=== PATIENT | male | born 1950 | race Caucasian/White ===

== ENCOUNTER 2018-10-24 04:39 | Inpatient (IN) | payer OTHER ==
[~2018-10-24] VITALS: Ht 172.7 cm; Wt 95.3 kg
--- NOTE | 2018-10-24 04:49 | NUR ---
REPORT RECIEVED FROM [facility] 0.8 TOTAL NITRO GIVEN AND PAIN 4/10 PER MASOOD CORMIER.
[2018-10-24 05:12] VITALS: Ht 172.7 cm; Wt 95.3 kg
--- NOTE | 2018-10-24 05:50 | NUR ---
PT STATED HAVING CHEST PRESSURE THIS MORNING @ 0430 WHILE WE WAS WATCHING TV. HE STATED THE CHEST PRESSURE WAS CONSTANT AND DIDN'T GO AWAY. STATED THE CHEST PRESSURE FELT LIKE SOMEONEWAS SITTING ON HIS CHEST ABOUT THE SIZE OF A SMALL CHILD. HR 58. BP 122/64(83). ALSO STATED HAVING 5/10 PAIN IN THE LOWER QUADRANT AND IT RADIATES TO HIS BACK. ABD SOFT AND OBESE. SLIGHTLY TENDER TO PALPATION UPON RLQ.
[2018-10-24 06:12] LABS: BASOPHIL % 0.3 % (0-2); PLATELET COUNT 223 x10^3mcL (130-400); RED CELL DISTRIBUTION WIDTH 13.6 % (11.5-14.5)
--- NOTE | 2018-10-24 06:32 | NUR ---
PT STATED FEELING A LITTLE BETTER. LESS PRESSURE ON HIS CHEST NOTED. UPDATED ON LAB REPORTS PT STATED HE WOULD LIKE TO KNOW HIS POTASSIUM LEVEL WHEN IT COMES BACK BECAUSE HE SAYS ITS USUALLY LOW AND HIS BODY HAS A HARD TIME RETAINING POTASSIUM.
[2018-10-24 06:39] LABS: CALCIUM 8.7 mg/dL (8.5-10.1); CARBON DIOXIDE 27.1 mmol/L (21-32); CHLORIDE SERUM 105 mmol/L (98-107); CREATININE SERUM 0.8 mg/dL (0.7-1.3); GFR1 > 60 mL/min; GLUCOSE SERUM 273 mg/dL (74-106); POTASSIUM SERUM 3.4 mmol/L (3.5-5.1); SODIUM SERUM 142 mmol/L (136-145)
[2018-10-24 06:42] LABS: ALKALINE PHOSPHATASE 155 U/L (46-116); ALT/SGPT 25 U/L (16-63); AST/SGOT 38 U/L (15-37); BILIRUBIN TOTAL 0.8 mg/dL (0.20-1.00); TOTAL PROTEIN, SERUM 6.7 g/dL (6.4-8.2)
[2018-10-24 06:48] LABS: ALBUMIN 3.3 g/dL (3.4-5.0)
--- NOTE | 2018-10-24 07:14 | NUR ---
PT RESTING ON ED GURNEY, RESPS E/U, NAD NOTED, ON FULL CM.
--- NOTE | 2018-10-24 07:14 | NUR ---
REPORT RECIEVED FROM KIYA CALDWELL.
--- NOTE | 2018-10-24 07:19 | NUR ---
CALL LIGHT WITHIN REACH, IN POSITION OF COMFORT. PT DENIES PAIN AT THIS TIME.
[2018-10-24] MEDS ORDERED: FLO4 PO (07:37)
[2018-10-24] MEDS ORDERED: LIPITOR80 MG PO (07:37)
[2018-10-24] MEDS ORDERED: NITROSTAT0.4 MG SL (07:38)
[2018-10-24] MEDS ORDERED: NOR5 PO (07:39)
[2018-10-24] MEDS ORDERED: RITE AID GLUCOSE4 GM PO (07:41)
[2018-10-24] MEDS ORDERED: K-TAB8 MEQ PO (07:41)
[2018-10-24] MEDS ORDERED: BENAZEPRIL HYDR40 M1 PO (07:43)
[2018-10-24] MEDS ORDERED: CLOPIDOGREL75 M1 PO (07:44)
--- NOTE | 2018-10-24 08:25 | NUR ---
PATIENT ARRIVED VIA GUERNEY ACCOMPANIED BY RN. PATIENT SEATED IN BED DENIES CHEST PAIN. PATIENT IS A/OX4, PULSES PRESENT, NO SOB. PATIENT ABLE TO AMBULATE. SPOKE WITH PATIENT ABOUT CURRENT PLANS AND TO AWAIT BRAKE MACHINE OPERATOR TO SPEAK WITH PATIENT. INSTRUCTED ON USE OF BED AND CALL LIGHT, PATIENT VERBALIZES UNDERSTANDING.
[2018-10-24] MEDS ORDERED: LANTI SC (08:54)
[2018-10-24 10:45] VITALS: BP 115/71
[2018-10-24 11:26] LABS: CHOLESTEROL/HDL RATIO 2.3
[2018-10-24 12:12] VITALS: BP 132/65
--- NOTE | 2018-10-24 14:49 | NUR ---
SPOKE W PATIENT AND FAMILY ABOUT PLAN OF CARE. AWAITING DR ANDERSON TO SPEAK WITH THEM ABOUT CARDIO PLAN. NOTIFIED BY NATHALIA BREWER OF BRADYCARDIA OF HR OF 35. CHARGE NURSE ABDULAZIZ MADE AWARE, WILL NOTIFY DR ANDERSON WELL. PATIENT DENIES SOB OR CP AT THIS TIME, SS WARM, PINK, DRY W/O DIAPHORESIS. CALL LIGHT IN REACH.
[2018-10-24 16:13] VITALS: BP 131/73
--- NOTE | 2018-10-24 18:21 | NUR ---
PATIENT IN BED RESTING. PATIENT CONTINUES TO BE BRADYCARDIC BUT DENIES ANY CHEST PAIN AT THIS TIME. WILL ENDORSE TO ONCOMING NURSE. CALL LIGHT IN REACH.
[2018-10-24 19:32] VITALS: BP 109/70
--- NOTE | 2018-10-24 22:04 | NUR ---
RECEIVED PT IN BED AAOX4 . PT DENY CHEST PAIN AT THE MOMENT , ON TELE NUMBER 17 THAT SHOWS SB HR 57 PT'S IN AND OUT OF SB AND SECOND DEGREE AV BLOCK ASYMPTOMATIC AT THE MOMENT , DR BRAGG AND CHARGE NURSE AWARE , WILL CON'T TO MONITOR PT CLOSELY , HL INTACT FLUSHING WELL .
--- NOTE | 2018-10-25 03:11 | NUR ---
I HAVE REVIEWED THE DATA COLLECTION BY LINK TRAINER OPERATOR (NAME):HOWARD LOVELACE ENTERED ON (DATE/TIME): I CONCUR WITH THE DATA AND ANY EXCEPTIONS OR COMMENTS ARE LISTED BELOW:
[2018-10-25 05:09] VITALS: BP 111/70
[2018-10-25 06:18] LABS: BASOPHIL % 0.5 % (0-2); PLATELET COUNT 211 x10^3mcL (130-400); RED CELL DISTRIBUTION WIDTH 13.8 % (11.5-14.5)
[2018-10-25 06:42] LABS: CALCIUM 8.8 mg/dL (8.5-10.1); CARBON DIOXIDE 29.8 mmol/L (21-32); CHLORIDE SERUM 108 mmol/L (98-107); CREATININE SERUM 0.8 mg/dL (0.7-1.3); GFR1 > 60 mL/min; GLUCOSE SERUM 150 mg/dL (74-106); POTASSIUM SERUM 3.2 mmol/L (3.5-5.1); SODIUM SERUM 145 mmol/L (136-145)
--- NOTE | 2018-10-25 06:47 | NUR ---
PT'S IN BED WITH EYES CLOSED , TELE SB HR 53. PT DENY CHEST PAIN , ALL DUE MEDS GIVEN NO REACTION NOTED.
--- NOTE | 2018-10-25 07:15 | NUR ---
RECEIVED PT FROM NIGHT NURSE. PT IS LAYING DOWN IN BED WITH HOB UP. PT LOOKS TO BE IN NO ACUTE DISTRESS AT THIS TIME AND DENIES ANY PAIN. PT STATES FEELING COLD AND IS REQUESTING ADDITIONAL BLANKET, PROVIDED PT WITH BLANKET. IV SITE PATENT WITH NO SIGNS OF ERYTHEMA OR SWELLING. TELE MONITOR PRESENT SHOWING NSR. BED IN LOWEST POSITION, CALL LIGHT WITHIN REACH. WILL CONTINUE TO MONITOR.
[2018-10-25 07:37] VITALS: BP 116/60
--- NOTE | 2018-10-25 09:28 | NUR ---
SPOT CHECK BLOOD SUGAR BEFORE [facility] ADMIN[facility]RATION AND IS 303. APPLE JUICE AND CRACKERS AT BEDSIDE. WILL CONTINUE TO MONITOR.
--- NOTE | 2018-10-25 10:55 | NUR ---
REPORTED BY MT. ROMO THAT PATIENT'S HEART RATE DROPPED TO 29 BPM. WENT TO CHECK PATIENT IMMDIATELY, PATIENT ALERT/AWAKE, DENIES ANY DIZZINES OR CHEST DISCOMFORT. V/S BP 135/72, MAP 114, RA O2 SAT 96%. RR. 20. 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 TISHA HAQUE MADE AWARE OF THIS INFO. SHE CONTACTED MATERIALS SCHEDULER DR. ANDERSON, WILL CONTINUE TO MONITOR PATIENT VERY CLOSELY.
[2018-10-25 11:53] VITALS: BP 114/72
[2018-10-25 16:22] VITALS: BP 133/67
--- NOTE | 2018-10-25 16:32 | NUR ---
PT IS LAYING DOWN IN BED WATCHING TV. PT LOOKS TO BE IN NO ACUTE DISTRESS AT THIS TIME AND DENIES ANY PAIN. IV SITE PATENT WITH NO SIGNS OF ERYTHEMA OR SWELLING. BED IN LOWEST POSITION, CALL LIGHT WITHIN REACH. WILL CONTINUE TO MONITOR.
--- NOTE | 2018-10-25 18:12 | NUR ---
PT IS LAYING DOWN IN BED WITH HOB UP TALKING WITH FAMILY MEMBERS. PT LOOKS TO BE IN NO ACUTE DISTRESS AND DENIES ANY PAIN AT THIS TIME. IV SITE PATENT WITH NO SIGNS OF ERYTHEMA OR SWELLING. RESPIRATIONS EVEN AND UNLABORED ON ROOM AIR. BED IN LOWEST POSITION, CALL LIGHT WITHIN REACH. FAMILY MEMBERS AT BEDSIDE. WILL ENDORSE TO ONCOMING SHIFT.
[2018-10-25 19:12] VITALS: BP 121/57
--- NOTE | 2018-10-25 19:40 | NUR ---
RECEIVED PT IN BED, A/O X4. DENIES HEADACHE/DIZZINESS. RESP. EVEN AND UNLABORED. ON ROOM AIR, NO ACUTE DISTRESS NOTED. SB ON THE MONITOR, DENIES CHEST PAIN OR ANY DISCOMFORT AT THIS TIME. HL TO RFA, INTACT AND PATENT. AMBULATORY. NO COMPLAINTS NOTED AT THIS TIME. AWAITING TO BE SEEN BY DR ANDERSON AND POSSIBLE D/C HOME . CALL LIGHT WITHIN REACH. WILL CONTINUE TO MONITOR.
--- NOTE | 2018-10-25 20:10 | NUR ---
PT REMOVED TELE . AND GOWN. DRESSED UP ,READY TO GO HOME. DR BRAGG NOTIFIED. DR BRAGG SPOKE WITH PT AND PT WILL BE DISCHARGED HOME. AWAITING ORDERS.
[2018-10-25] MEDS ORDERED: BAY PO (20:22)
[2018-10-25 20:40] VITALS: BP 121/57
--- NOTE | 2018-10-25 20:54 | NUR ---
DISCHARGE HOME ORDERS RECEIVED FROM DR BRAGG. PRESCRIPTION AND DISCHARGE INSTRUCTIONS GIVEN TO PT AND DAUGHTER, BOTH VERBALIZED UNDERSTANDING. HL AND TELE DISCONTINUED. PT DENIES CP OR ANY DISCOMFORT AT THIS TIME. AFEBRILE AND VITAL SIGNS STABLE. PERSONAL BELONGINGS GIVEN TO PT. DISCHARGED HOME, ACCOMPANIED BY DAUGHTER.
== END 2018-10-25 20:52 | disposition home or self-care (01) | DRG 313 ==
LOC: ED 04:39 → DU 07:42
PROVIDERS: Emergency Medicine; ADMIT Internal Medicine
DX: R07.9 Chest pain, unspecified (principal); I44.1 Atrioventricular block, second degree; I25.10 Atherosclerotic heart disease of native coronary artery without angina pectoris; E11.65 Type 2 diabetes mellitus with hyperglycemia; J45.909 Unspecified asthma, uncomplicated; I10 Essential (primary) hypertension; N40.0 Benign prostatic hyperplasia without lower urinary tract symptoms; E78.5 Hyperlipidemia, unspecified; Z79.4 Long term (current) use of insulin; Z68.31 Body mass index [BMI] 31.0-31.9, adult; Z87.891 Personal history of nicotine dependence; Z95.5 Presence of coronary angioplasty implant and graft; Z79.84 Long term (current) use of oral hypoglycemic drugs
CPT/HCPCS: 82962; G0378; J3490